=== PATIENT | female | born 1975 | race Caucasian/White ===

== ENCOUNTER 2020-01-21 20:03 | Emergency (ER) | payer BC ==
[~2020-01-21] VITALS: Ht 157.5 cm; Wt 62.1 kg
[2020-01-21 20:09] VITALS: BP 133/86
--- NOTE | 2020-01-21 20:12 | NUR ---
Pt assessed by Angelica SOTO in triage.
--- NOTE | 2020-01-21 20:12 | NUR ---
PT AMBULATED TO BED 5 WITH STEADY GAIT.
--- NOTE | 2020-01-21 20:15 | NUR ---
44 Y/O FEMALE C/O LEFT ANKLE PAIN AND DECREASED ROM WITH LEFT FOOT/TOES X 4 DAYS AFTER PT TWISTED HER ANKLE WHEN STEPPING ON GARDEN HOSE; PT DENIES LOSING BALANCE/LOC; PAIN 6/10 AND FEELS SHARP IN NATURE; PT TOOK 500MG OF MOTRIN AT 5PM WITH MINIMAL RELIEF; DENIES N/V/D; SKIN IS PINK/WARM/DRY; AAOX4 WITH EVEN AND STEADY GAIT; HR EVEN AND REGULAR; PT DENIES ANY FEVER, CP, SOB, OR COUGH AT THIS TIME; VSS; PATIENT POSITIONED FOR COMFORT; HOB ELEVATED; BEDRAILS UP X2; BED DOWN AND LOCKED. PMH: PT DENIES NKA
--- NOTE | 2020-01-21 20:19 | NUR ---
XRAY AT BEDSIDE
--- NOTE | 2020-01-21 20:25 | NUR ---
URINE DIP AND PREG DONE
--- NOTE | 2020-01-21 20:31 | NUR ---
CHARLES MORRISON AT BEDSIDE
--- NOTE | 2020-01-21 20:58 | NUR ---
posterior short leg was placed on pts L leg. pts pmsc wnl. pt was also given crutches pt showed good use of crutches.
--- NOTE | 2020-01-21 21:05 | NUR ---
Patient discharged with v/s stable. Written and verbal after care instructions given and explained. Patient alert, oriented and verbalized understanding of instructions. Ambulatory with steady gait. All questions addressed prior to discharge. ID band removed. Patient advised to follow up with PMD. Rx of ibuprofen given. Patient educated on indication of medication including possible reaction and side effects. Opportunity to ask questions provided and answered. pt CD for xray also given and handed to the pt
[2020-01-21 21:09] VITALS: BP 122/78
== END 2020-01-21 21:05 | disposition home or self-care (01) ==
LOC: MED 20:03
DX: S92.355A Nondisplaced fracture of fifth metatarsal bone, left foot, initial encounter for closed fracture (principal); W19.XXXA Unspecified fall, initial encounter; Y93.89 Activity, other specified; Y92.017 Garden or yard in single-family (private) house as the place of occurrence of the external cause; Y99.8 Other external cause status
CPT/HCPCS: 29515; 73630; 81002; 81025; 99283